=== PATIENT | male | born 1955 | race African-American/Black ===

== ENCOUNTER 2017-05-15 14:59 | Outpatient (CLI) | payer OTHER ==
--- NOTE | 2017-05-15 16:28 | Cat Scan Report ---
FINAL REPORT EXAM: CT HEAD/BRAIN WO CON HISTORY: HYPEROSTOSIS OF SKULL TECHNIQUE: Standard unenhanced CT of the head at 5.0 millimeter axial increments PRIORS: MRI 06/09/2014 FINDINGS: Within the skull, there is focal hyperostosis over the right frontal region (axial image 42, series 3), similar appearance to the prior MRI. 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 There are numerous other focal lucencies scattered throughout the skull. Many of these correspond to prominent vessels within the skull on MRI. Other smaller ovoid lucencies in the skull are also seen on prior MRI. Some of the smallest focal lucencies are difficult to confirm as present on the prior MRI. The ventricular system is normal in size and configuration. There is no evidence for parenchymal volume loss. There is no evidence for mass lesion, mass effect, midline shift, acute intracranial hemorrhage, or acute ischemia/ infarction. Visualized paranasal sinuses are clear. IMPRESSION: 1. negative CT of the head. No acute intracranial process noted. No change. 2. Numerous focal lucencies in the skull are again noted although some of the smaller foci are difficult to confirm on the prior MRI, likely due to size. Many of these correspond to prominent vascular channels in the skull. 3. Focal hyperostosis in the right frontal region is stable.
--- NOTE | 2017-05-18 10:30 | Mammography Report ---
BONE DEXA:05/15/17 CLINICAL: Postmenopausal. No comparison. TECHNIQUE: Two site bone DEXA performed on an Hologic scanner. FINDINGS: The average BMD of the lumbar spine L1-L3 is 0.853g/cm squared with a T-score of -2.2 and a Z-score of -1.5. The L4 body was excluded as an outlier because of endplate sclerosis at L4-5. The average BMD of the left hip is 0.559g/cm squared with a T-score of -2.0 and a Z-score of -1.6. The left femoral neck BMD is 0.559g/cm squared with a T score of one is 2.7 and a Z score of -1.8. IMPRESSION: 1. WHO classification: Osteopenia with increased fracture risk based on lumbar spine measurements. 2. WHO classification: Osteoporosis with high fracture risk based on left femoral neck measurements. RECOMMENDATION: Clinical correlation and routine screening. DEFINITIONS: BMD = Bone Mineral Density T-score = BMD related to mean peak bone mass of young adult (mean expressed in Standard Deviation) Z-score = Age matched BMD expressed in SD World Health Organization (WHO) Diagnostic Criteria Normal T-score > -1 SD Osteopenia T-score between -1 and -2.4 SD Osteoporosis T-score -2.5 SD or below NOTE: BMD is not the only risk factor for fracture. One should also consider factors such as the patient's age, risk of falling, previous osteoporotic fracture, family history of osteoporotic fractures, current smoker, and low body weight. Z-scores are not calculated if >80 years of age.
== END 2017-05-15 15:00 | disposition home or self-care (01) ==
LOC: SPVWC 14:59 → CT 15:00
PROVIDERS: ATTEND Family Medicine
DX: M81.0 Age-related osteoporosis without current pathological fracture (principal); M85.88 Other specified disorders of bone density and structure, other site; M85.2 Hyperostosis of skull; M83.9 Adult osteomalacia, unspecified; I10 Essential (primary) hypertension
CPT/HCPCS: 70450; 77080

== ENCOUNTER 2017-09-24 08:25 | Outpatient (CLI) | payer OTHER ==
--- NOTE | 2017-09-25 07:56 | XRay Report ---
FINAL REPORT PROCEDURE: XR KNEE BILAT 4+V TECHNIQUE: Bilateral knee radiographs, standing AP view. HISTORY: BILATERAL KNEE PAIN COMPARISON: No prior studies are available for comparison. FINDINGS: Fracture (s) and/or Dislocation(s): None. There is a bony density the adjacent to the right medial tibial plateau which could be an old cortical fracture fragment, possibly associated with medial collateral ligament injury. Joint space(s): There is narrowing of the medial knee compartment bilaterally. There narrowing of the patellofemoral joint space bilaterally. Soft tissues: There are small bilateral effusions. Bone mineralization: Normal. Foreign bodies: None. There are small spurs of the patella bilaterally. IMPRESSION: There is a bony density the adjacent to the right medial tibial plateau which could be an old cortical fracture fragment, possibly associated with medial collateral ligament injury. There is narrowing of the medial knee compartment bilaterally. There narrowing of the patellofemoral joint space bilaterally. There are small bilateral effusions. There are small spurs of the patella bilaterally.
== END 2017-09-24 08:26 | disposition home or self-care (01) ==
LOC: SPVIMAG 08:25
PROVIDERS: ATTEND Orthopaedic Surgery
DX: M76.52 Patellar tendinitis, left knee (principal); M76.51 Patellar tendinitis, right knee